=== PATIENT | female | born 1995 | race Caucasian/White ===

== ENCOUNTER 2019-04-11 11:52 | Emergency (ER) | payer OTHER ==
[2019-04-11 12:53] VITALS: BP 111/68
--- NOTE | 2019-04-11 13:12 | UC ---
Throat Pain/Nasal Nolan HPI - HPI Summary HPI Summary: Pt had a URI over one week ago which she thinks got better but now has sinus pressure, greenish nasal coryza and productive cough. Fever yesterday but not today. - History of Current Complaint Chief Complaint: UCRespiratory Stated Complaint: COUGH/FEVER Time Seen by Provider: 04/11/19 13:06 Hx Obtained From: Patient Hx Last Menstrual Period: 02/18/19 ?: No Onset/Duration: Gradual Onset Severity: Mild Pain Intensity: 5 Cough: Productive Associated Signs & Symptoms: Positive: Wheezing, Sinus Discomfort, Nasal Discharge - Allergies/Home Medications Allergies/Adverse Reactions: Allergies Allergy/AdvReac Type Severity Reaction Status Date / Time prednisone Allergy Headache Verified 04/11/19 12:41 Home Medications: Home Medications Levothyroxine TAB* [Synthroid TAB*] 75 mcg PO DAILY 04/11/19 [History Confirmed 04/11/19] metFORMIN* [Glucophage 500 MG TAB *] 500 mg PO BID 04/11/19 [History Confirmed 04/11/19] PMH/Surg Hx/FS Hx/Imm Hx Previously Healthy: Yes - Surgical History Surgical History: Yes Surgery Procedure, Year, and Place: T&A, lipoma removed 09/2018 - Family History Known Family History: Positive: Hypertension, Diabetes - Social History Alcohol Use: Occasionally Substance Use Type: None Substance Use Comment - Amount & Last Used: rare Smoking Status (MU): Light Every Day Tobacco Smoker Type: eCigarettes Amount Used/How Often: casual smoker Have You Smoked in the Last Year: Yes - Immunization History Most Recent Influenza Vaccination: no Vaccination Up to Date: Yes Review of Systems All Other Systems Reviewed And Are Negative: Yes Constitutional: Positive: Fever - Fever yesterday ENT: Positive: Nasal Discharge, Sinus Congestion, Sinus Pain/Tenderness - Yellow /green nasal coryza and post nasal drainage Respiratory: Positive: Cough - Occasionally coughs up greenish phlegm Is Patient Immunocompromised?: No Physical Exam Triage Information Reviewed: Yes Appearance: Well-Appearing, No Pain Distress, Well-Nourished Vital Signs: Initial Vital Signs Temp 98.5 F 04/11/19 12:45 Pulse 77 04/11/19 12:45 Resp 18 04/11/19 12:45 BP 111/68 04/11/19 12:45 Pulse Ox 99 04/11/19 12:45 Vital Signs Reviewed: Yes Eyes: Positive: Conjunctiva Clear ENT: Positive: Pharynx normal - Yellow post-nasal drainage, Nasal congestion, Nasal drainage, TMs normal, Sinus tenderness, Uvula midline Neck: Positive: Supple, Nontender, No Lymphadenopathy Respiratory: Positive: Lungs clear, Normal breath sounds, No respiratory distress, No accessory muscle use Cardiovascular: Positive: RRR, No Murmur, Pulses Normal, Brisk Capillary Refill Musculoskeletal Exam: Normal Neurological Exam: Normal Psychological Exam: Normal Skin Exam: Normal Throat Pain/Nasal Course/Dx - Course Course Of Treatment: Comfortable here. Pt taught use of inhaler - Differential Dx/Diagnosis Provider Diagnosis: Sinusitis Discharge ED - Sign-Out/Discharge Documenting (check all that apply): Patient Departure All imaging exams completed and their final reports reviewed: No Studies - Discharge Plan Condition: Good Disposition: HOME Prescriptions: Albuterol HFA INHALER* [Ventolin HFA Inhaler*] 2 puff INH Q4H PRN 5 Days #1 mdi PRN Reason: Wheezing Amoxicillin/Clavulanate TAB* [Augmentin TAB 875*] 875 mg PO BID 10 Days #20 tab Patient Education Materials: Sinusitis (ED) Referrals: Leelee Dhaliwal PA [Primary Care Provider] - Additional Instructions: Increase fluids, take the Augmentin with food. Use the inhaler every 4 hours as needed for wheezing. See your doctor in 5-6 days if no improvement. Go to the ER if worsening symptoms. - Billing Disposition and Condition Condition: GOOD Disposition: Home
== END 2019-04-11 13:21 | disposition home or self-care (01) ==
LOC: UCCORT 11:52
DX: J32.9 Chronic sinusitis, unspecified (principal); R05 Cough; F17.290 Nicotine dependence, other tobacco product, uncomplicated; Z88.8 Allergy status to other drugs, medicaments and biological substances
CPT/HCPCS: 99212; G0463

== ENCOUNTER 2019-07-10 09:31 | Emergency (ER) | payer SELFPAY ==
[2019-07-10 10:02] VITALS: BP 116/82
--- NOTE | 2019-07-10 10:38 | UC ---
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 Pt states pain began gradually and worsened through the night - History of Current Complaint Chief Complaint: UCBackPain Stated Complaint: BACK PAIN Time Seen by Provider: 07/10/19 10:29 Hx Obtained From: Patient Hx Last Menstrual Period: "Tarah ... I'm not ovulating" ?: No Onset/Duration: Gradual Onset, Lasting Hours Timing: Constant Severity Initially: Mild Severity Currently: Moderate Pain Intensity: 5 Character: Dull, Aching, Stiffness Aggravating Factor(s): Movement, Bending Alleviating Factor(s): Rest, Position Associated Signs And Symptoms: Positive: Negative - Risk Factors AAA Risk Factors: Negative TAD Risk Factors: Negative Cauda Equina Risk Factors: Negative Epidural Abscess Risk Factors: Negative - Allergies/Home Medications Allergies/Adverse Reactions: Allergies Allergy/AdvReac Type Severity Reaction Status Date / Time bhavin Allergy Anaphylatic Verified 07/10/19 09:55 Shock prednisone AdvReac Headache Verified 07/10/19 09:55 wasps Allergy Swelling Uncoded 07/10/19 09:55 Home Medications: Home Medications Levothyroxine TAB* [Synthroid 75 MCG TAB*] 75 mcg PO DAILY 04/11/19 [History Confirmed 07/10/19] metFORMIN* [Glucophage 500 MG TAB *] 500 mg PO BID 04/11/19 [History Confirmed 07/10/19] Acetaminophen [Acetaminophen Extra Strength] 2,000 mg PO ONCE 07/10/19 [History Confirmed 07/10/19] Cyclobenzaprine TAB* [Flexeril 10 MG TAB*] 10 mg PO Q8H PRN #15 tab 07/10/19 [Rx ] Ibuprofen TAB* [Motrin TAB* 800 MG] 800 mg PO Q8H PRN #15 tab 07/10/19 [Rx] Vitamin TAB* 1 tab PO DAILY 07/10/19 [History Confirmed 07/10/19] Vitamin TAB* 2 tab PO DAILY 07/10/19 [History Confirmed 07/10/19] PMH/Surg Hx/FS Hx/Imm Hx Previously Healthy: Yes - Surgical History Surgical History: Yes Surgery Procedure, Year, and Place: Posterior Skull Lipoma, 2019, [facility]; T&A, ~2008, [facility] - Family History Known Family History: Positive: Hypertension, Diabetes - Social History Lives: With Family Alcohol Use: Occasionally Substance Use Type: Marijuana Substance Use Comment - Amount & Last Used: Occasionally Smoking Status (MU): Light Every Day Tobacco Smoker Type: eCigarettes Amount Used/How Often: "A lot" Length of Time of Smoking/Using Tobacco: Since Age 12 Have You Smoked in the Last Year: Yes When Did the Patient Quit Smoking/Using Tobacco: No cigarettes since 2012 - Immunization History Most Recent Influenza Vaccination: no Vaccination Up to Date: Yes Review of Systems All Other Systems Reviewed And Are Negative: Yes Constitutional: Positive: Negative Skin: Positive: Negative Eyes: Positive: Negative ENT: Positive: Negative Respiratory: Positive: Negative Cardiovascular: Positive: Negative Gastrointestinal: Positive: Negative Genitourinary: Positive: Negative Motor: Positive: Negative Neurovascular: Positive: Negative Musculoskeletal: Positive: Myalgia - low back Neurological/Mental Status: Positive: Negative Psychological: Positive: Negative Is Patient Immunocompromised?: No Physical Exam Triage Information Reviewed: Yes Appearance: Well-Appearing Vital Signs: Initial Vital Signs Temp 98.2 F 07/10/19 09:49 Pulse 64 07/10/19 09:49 Resp 18 07/10/19 09:49 BP 116/82 07/10/19 09:49 Pulse Ox 100 07/10/19 09:49 Vital Signs Reviewed: Yes Eye Exam: Normal ENT Exam: Normal ENT: Positive: Hearing grossly normal Dental Exam: Normal Respiratory: Positive: No respiratory distress Musculoskeletal: Positive: Other: - c/o low back myalgia Neurological Exam: Normal Psychological Exam: Normal Skin Exam: Normal Back Pain Course/Dx - Differential Dx/Diagnosis Differential Diagnosis/HQI/PQRI: Strain, Sprain Provider Diagnosis: Low back ache Discharge ED - Sign-Out/Discharge Documenting (check all that apply): Patient Departure All imaging exams completed and their final reports reviewed: No Studies - Discharge Plan Condition: Stable Disposition: HOME Prescriptions: Cyclobenzaprine TAB* [Flexeril 10 MG TAB*] 10 mg PO Q8H PRN #15 tab PRN Reason: Pain - Mild Ibuprofen TAB* [Motrin TAB* 800 MG] 800 mg PO Q8H PRN #15 tab PRN Reason: Pain - Mild Patient Education Materials: Low Back Strain (ED) Forms: *Work Release Referrals: Leelee Dhaliwal PA [Primary Care Provider] - If Needed - Billing Disposition and Condition Condition: STABLE Disposition: Home
== END 2019-07-10 10:50 | disposition home or self-care (01) ==
LOC: UCCORT 09:31
DX: M54.5 Low back pain (principal); Z91.030 Bee allergy status; Z88.8 Allergy status to other drugs, medicaments and biological substances; Z91.018 Allergy to other foods; F17.290 Nicotine dependence, other tobacco product, uncomplicated
CPT/HCPCS: 99212; G0463